=== PATIENT | female | born 1980 | race Caucasian/White ===

== ENCOUNTER → 2018-11-19 | Outpatient (CLI) | payer OTHER | END | disposition home or self-care (01) | LOC: LABWHC1 09:32 | PROVIDERS: ATTEND Nurse Practitioner Family | DX: Z00.00 Encounter for general adult medical examination without abnormal findings (principal); E66.9 Obesity, unspecified; Z68.33 Body mass index [BMI] 33.0-33.9, adult; E03.9 Hypothyroidism, unspecified | CPT/HCPCS: 36415; 93005 ==

== ENCOUNTER → 2022-08-25 | Outpatient (CLI) | payer OTHER ==
--- NOTE | 2022-08-28 08:36 | MM ---
Reason for Exam: Screening (asymptomatic). Baseline mammogram. Patient History: Menarche at age 16. First Full-Term at age 30. Patient has history of breast feeding. Last menstrual period: 08/08/2022 Risk Values: Nisa 5 year model risk: 0.6%. NCI Lifetime model risk: 10.2%. Prior Study Comparison: Patient's first Mammogram. Tissue Density: The breast tissue is heterogeneously dense. This may lower the sensitivity of mammography. Findings: Analyzed By CAD. There is no suspicious group of microcalcifications or new suspicious mass in either breast. There is no suspicious group of microcalcifications or suspicious mass in either breast. Overall Assessment: Negative, BI-RAD 1 Management: Screening Mammogram of both breasts in 1 year. A clinical breast exam by your physician is recommended on an annual basis and results should be correlated with mammographic findings. Electronically signed and approved by: Schuyler Perry M.D.
== END | disposition home or self-care (01) ==
LOC: RADMAMWWP 07:21
PROVIDERS: ATTEND Obstetrics & Gynecology
DX: Z12.31 Encounter for screening mammogram for malignant neoplasm of breast (principal)
CPT/HCPCS: 77063; 77067

== ENCOUNTER 2023-10-05 18:26 | Emergency (ER) | payer OTHER ==
--- NOTE | 2023-10-05 18:42 | ED ---
Chest Pain HPI - General Source: patient, RN notes reviewed <Stephanie Tavares - Last Filed: 10/05/23 18:40> <Simeon Arteaga - Last Filed: 10/05/23 23:04> - General Stated Complaint: Chest pain Time Seen by Provider: 10/05/23 18:40 - History of Present Illness Initial Comments: Patient is a 43-year-old female presented ER with chief complaint chest pain. Patient also is endorsing numbness and tingling in her upper extremities. Describes chest pain as tightness 7 out of 10. (Stephanie Tavares) 43-year-old female presents for an episode of lower chest and upper abdominal pain. Patient has no prior history of CAD. She states that this occurred while at work. She has previous history of cholecystectomy. No vomiting. She did have hyperventilation and periorbital numbness during this episode which has since resolved. (Simeon Arteaga) - Related Data Allergies Allergy/AdvReac Type Severity Reaction Status Date / Time Penicillins Allergy Rash/Hives Verified 10/05/23 18:42 Sulfa (Sulfonamide Allergy Rash/Hives Verified 10/05/23 18:43 Antibiotics) Review of Systems ROS Other: All systems not noted in ROS Statement are negative. <Stephanie Tavares - Last Filed: 10/05/23 18:40> ROS Other: All systems not noted in ROS Statement are negative. <Simeon Arteaga - Last Filed: 10/05/23 23:04> ROS Statement: Those systems with pertinent positive or pertinent negative responses have been documented in the HPI. General Exam <Stephanie Tavares - Last Filed: 10/05/23 18:40> General appearance: alert, in no apparent distress Head exam: Present: atraumatic, normocephalic Eye exam: Present: normal appearance, PERRL ENT exam: Present: normal exam Neck exam: Present: normal inspection. Absent: tenderness, meningismus Respiratory exam: Present: normal lung sounds bilaterally. Absent: respiratory distress, wheezes Cardiovascular Exam: Present: regular rate, normal rhythm GI/Abdominal exam: Present: soft. Absent: distended, tenderness Extremities exam: Present: normal inspection, normal capillary refill Neurological exam: Present: alert, oriented X3, CN II-XII intact. Absent: motor sensory deficit Psychiatric exam: Present: normal affect, normal mood Skin exam: Present: warm, dry, intact. Absent: cyanosis, diaphoretic <Simeon Arteaga - Last Filed: 10/05/23 23:04> - General Exam Comments Initial Comments: Visual Physical Exam Vital signs reviewed General: Anxious, nontoxic, no acute distress. Head: Normocephalic, atraumatic Eyes: PERRLA, EOMI ENT: Airway patent Chest: Nonlabored breathing Skin: No visual rash, normal skin tone Neuro: Alert and oriented 3 Musculoskeletal: No gross abnormalities (Stephanie Tavares) Course <Simeon Arteaga - Last Filed: 10/05/23 23:04> Vital Signs 10/05/23 18:38 Temperature 97.6 F Pulse Rate 78 Respiratory 20 Rate Blood Pressure 132/85 O2 Sat by Pulse 99 Oximetry - Reevaluation(s) Reevaluation #1: 10/05/23 23:01 Patient reevaluated twice, no chest pain, no vomiting, no fever, no abdominal pain. (Simeon Arteaga) Chest Pain MDM <Stephanie Tavares - Last Filed: 10/05/23 18:40> <Simeon Arteaga - Last Filed: 10/05/23 23:04> - MDM I performed the quick note portion of the exam. Electronically signed by Stephanie Tavares PA-C (Stephanie Tavares) Was pt. sent in by a medical professional or institution (ANABELA Fleming, GROUP WORKER, urgent care, hospital, or detention...) When possible be specific @ -No Did you speak to anyone other than the patient for history (EMS, parent, family, police, friend...)? What history was obtained from this source @ -No Did you review nursing and triage notes (agree or disagree)? Why? @ -I reviewed and agree with nursing and triage notes Were old charts reviewed (outside hosp., previous admission, EMS record, old EKG, old radiological studies, urgent care reports/EKG's, detention records)? Report findings @ -No old charts were reviewed Differential Diagnosis (chest pain, altered mental status, abdominal pain women, abdominal pain men, vaginal bleeding, weakness, fever, dyspnea, syncope, headache, dizziness, GI bleed, back pain, seizure, CVA, palpatations, mental health, musculoskeletal)? @Differential Chest Pain: Stable Angina, Unstable Angina, STEMI, NSTEMI Aortic Dissection, Pneumothorax, Musculoskeletal, Esophageal Spasm GERD, Cholecystitis, Pancreatitis, Zoster, this is not meant to be an all-inclusive list. EKG interpreted by me (3pts min.). @Sinus rhythm, incomplete right bundle branch block, ventricular rate of 69, AL interval 146, QRS duration 109, QTc [address] segment elevation X-rays interpreted by me (1pt min.). @ -Chest x-ray negative for acute cardiopulmonary findings. CT interpreted by me (1pt min.). @ -None done U/S interpreted by me (1pt. min.). @ -None done What testing was considered but not performed or refused? (CT, X-rays, U/S, labs)? Why? @ -None What meds were considered but not given or refused? Why? @ -None Did you discuss the management of the patient with other professionals (professionals i.e. , PA, GROUP WORKER, lab, RT, psych nurse, social sciences instructor, naval inspector, teacher, community reinvestment act officer, case fitter)? Give summary @ -No Was smoking cessation discussed for >3mins.? @ -No Was critical care preformed (if so, how long)? @ -No Were there social determinants of health that impacted care today? How? (Homelessness, low income, unemployed, alcoholism, drug addiction, transportation, low edu. Level, literacy, decrease access to med. care, prison, rehab)? @ -No Was there de-escalation of care discussed even if they declined (Discuss DNR or withdrawal of care, Hospice)? DNR status @ -No What co-morbidities impacted this encounter? (DM, HTN, Smoking, COPD, CAD, Cancer, CVA, ARF, Chemo, Hep., AIDS, mental health diagnosis, sleep apnea, morbid obesity)? @ -[History of cholecystectomy Was patient admitted / discharged? Hospital course, mention meds given and route, prescriptions, significant lab abnormalities, going to OR and other pertinent info. @ -43-year-old female, well-appearing stable vitals. She is in sinus rhythm. Patient had developed lower chest and upper abdominal pain which was across bilateral lower chest. Patient pain had resolved at the time my evaluation. She has history of previous cholecystectomy. Chest x-ray is clear without acute cardiopulmonary findings. She has a normal CBC, CMP shows a transaminitis, patient does admit to alcohol consumption yesterday. Bilirubin is normal. Troponin is negative. I did repeat troponin which was again negative. Patient had no further symptoms while in the emergency department. I did discuss the possibility liver imaging and the common bile duct however given the patient is feeling better and there are currently no rooms in the emergency department we did plan on discharge with strict return parameters and close outpatient follow- up. Undiagnosed new problem with uncertain prognosis? @ -No Drug Therapy requiring intensive monitoring for toxicity (Heparin, Nitro, Insulin, Cardizem)? @ -No Were any procedures done? @ -No Diagnosis/symptom? @ -[Lower chest and upper abdominal pain, resolved Acute, or Chronic, or Acute on Chronic? @ -Acute Uncomplicated (without systemic symptoms) or Complicated (systemic symptoms)? @ -[default Side effects of treatment? @ -No Exacerbation, Progression, or Severe Exacerbation? @ -No Poses a threat to life or bodily function? How? (Chest pain, [place], [place], pneumonia, PE, COPD, DKA, ARF, appy, cholecystitis, CVA, Diverticulitis, Homicidal, Suicidal, threat to staff... and all critical care pts) @ -[low Risk at this time (Simeon Arteaga) Disposition <Stephanie Tavares - Last Filed: 10/05/23 18:40> Is patient prescribed a controlled substance at d/c from ED?: No Time of Disposition: 23:00 <Simeon Arteaga - Last Filed: 10/05/23 23:04> Clinical Impression: Abdominal pain, Chest pain Disposition: HOME SELF-CARE Condition: Fair Instructions (If sedation given, give patient instructions): Abdominal Pain (ED), Chest Pain (ED) Referrals: Blayne Abad Jr, [Primary Care Provider] - 1-2 days
[2023-10-05 18:46] VITALS: BP 132/85; PULSE 78; RESP 20; TEMP 97.6
[2023-10-05 19:20] LABS: MCH 30.9 pg (25.0-35.0); MCHC 34.2 g/dL (31.0-37.0); MCV 90.2 fL (80.0-100.0); Mean Platelet Volume 7.7; Platelet Count 257 k/uL (150-450); RBC 4.54 m/uL (3.80-5.40); RDW 11.7 % (11.5-15.5); WBC 10.2 k/uL (3.8-10.6)
--- NOTE | 2023-10-05 19:31 | XR ---
EXAMINATION TYPE: XR chest 2V DATE OF EXAM: 10/05/2023 7:14 PM CLINICAL INDICATION:Female, 43 years old with history of chest pain; [facility] COMPARISON: None TECHNIQUE: XR chest 2V Frontal and lateral views of the chest. FINDINGS: Lungs/Pleura: Azygous fissure in the right upper lung. There is no evidence of pleural effusion, foca l consolidation, or pneumothorax. Pulmonary vascularity: Unremarkable. Heart/mediastinum: Cardiomediastinal silhouette is unremarkable. Musculoskeletal: No acute osseous pathology. IMPRESSION: No acute cardiopulmonary disease/process.
[2023-10-05 19:34] LABS: ALT 64 U/L (4-34); AST 163 U/L (14-36); African American GFR (CKD) >90 (>60 ml/min/1.73 sqM); Albumin 4.7 g/dL (3.5-5.0); Alkaline Phosphatase 97 U/L (38-126); Anion Gap 9 mmol/L; Blood Urea Nitrogen 13 mg/dL (7-17); Calcium 9.2 mg/dL (8.4-10.2); Carbon Dioxide 27 mmol/L (22-30); Chloride 101 mmol/L (98-107); Glucose 107 mg/dL (74-99); Magnesium 1.9 mg/dL (1.6-2.3); Non-African American GFR(CKD) >90 (>60 ml/min/1.73 sqM); Potassium 3.8 mmol/L (3.5-5.1); Sodium 137 mmol/L (137-145); Total Bilirubin 0.8 mg/dL (0.2-1.3); Total Protein 7.4 g/dL (6.3-8.2)
[2023-10-05 19:39] LABS: INR 0.9 (<1.2); Partial Thromboplastin Time 25.5 sec (22.0-30.0); Prothrombin Time 10.5 sec (10.0-12.5)
[2023-10-05 22:19] LABS: ALT 144 U/L (4-34); AST 275 U/L (14-36); African American GFR (CKD) >90 (>60 ml/min/1.73 sqM); Albumin 4.5 g/dL (3.5-5.0); Alkaline Phosphatase 115 U/L (38-126); Anion Gap 5 mmol/L; Blood Urea Nitrogen 11 mg/dL (7-17); Calcium 9.2 mg/dL (8.4-10.2); Carbon Dioxide 27 mmol/L (22-30); Chloride 105 mmol/L (98-107); Glucose 99 mg/dL (74-99); Lipase 160 U/L (23-300); Non-African American GFR(CKD) >90 (>60 ml/min/1.73 sqM); Potassium 3.8 mmol/L (3.5-5.1); Sodium 137 mmol/L (137-145); Total Bilirubin 0.9 mg/dL (0.2-1.3); Total Protein 7.1 g/dL (6.3-8.2)
== END 2023-10-05 23:19 | disposition home or self-care (01) ==
LOC: EC 18:26
DX: I45.10 Unspecified right bundle-branch block (principal); R10.10 Upper abdominal pain, unspecified; Z88.0 Allergy status to penicillin; Z88.2 Allergy status to sulfonamides
CPT/HCPCS: 36415; 71046; 80053; 83690; 83735; 84484; 85027; 85610; 85730; 93005; 99285

== ENCOUNTER → 2023-10-25 | Outpatient (CLI) | payer OTHER ==
--- NOTE | 2023-10-26 10:34 | MM ---
Reason for Exam: Screening (asymptomatic). Last mammogram was performed 1 year(s) and 2 month(s) ago. Patient History: Menarche at age 16. First Full-Term at age 30. Patient has history of breast feeding. Last menstrual period: 10/04/2023 Risk Values: Nisa 5 year model risk: 0.6%. NCI Lifetime model risk: 10.1%. Prior Study Comparison: 08/25/2022 Bilateral MG 3D screening mammo w/cad, [facility]. Tissue Density: The breasts are heterogeneously dense, which may obscure small masses. Findings: Analyzed By CAD. Benign-appearing calcifications. There is no suspicious group of microcalcifications or new suspicious mass in either breast. Asymmetric density upper outer margin left breast. Overall Assessment: Incomplete: need additional imaging evaluation, BI-RAD 0 Management: Diagnostic Mammogram of the left breast. . Patient should continue monthly self-breast exams. A clinical breast exam by your physician is recommended on an annual basis. This exam should not preclude additional follow-up of suspicious palpable abnormalities. Note on Nisa scores and lifetime risk: 1. A Nisa score greater than 3% is considered moderate risk. If this is the case, consider specialist referral to assess eligibility for a risk reducing agent. 2. If overall lifetime risk for the development of breast cancer is 20% or higher, the patient may qualify for future screening with alternating mammogram and breast MRI. Electronically signed and approved by: Last Acosta M.D. Radiologis
== END | disposition home or self-care (01) ==
LOC: RADMAMWWP 11:11
PROVIDERS: ATTEND Obstetrics & Gynecology
DX: Z12.31 Encounter for screening mammogram for malignant neoplasm of breast (principal)
CPT/HCPCS: 77063; 77067

== ENCOUNTER → 2023-11-06 | Outpatient (CLI) | payer OTHER ==
--- NOTE | 2023-11-06 10:31 | USB ---
Reason for Exam: Additional evaluation requested from abnormal screening. Patient History: Menarche at age 16. First Full-Term at age 30. Patient has history of breast feeding. Risk Values: Nisa 5 year model risk: 0.6%. NCI Lifetime model risk: 10.1%. Technique: Method: Targeted. Prior Study Comparison: 08/25/2022 Bilateral MG 3D screening mammo w/cad, [facility]. 10/25/2023 Bilateral MG 3D screening mammo w/cad, [facility]. Findings: The upper outer quadrant of the left breast, the axilla of the left breast and the retroareolar of the left breast were scanned. No solid or cystic masses are identified.. Overall Assessment: Probably benign, BI-RAD 3 Management: Diagnostic Mammogram of the left breast in 6 months. A clinical breast exam by your physician is recommended on an annual basis and results should be correlated with mammographic findings. This exam should not preclude additional follow-up of suspicious palpable abnormalities. Results were given to the patient verbally at the time of exam. Electronically signed and approved by: Edgar Reddy M.D. Radiologis
--- NOTE | 2023-11-06 10:36 | MM ---
Reason for Exam: Additional evaluation requested from abnormal screening. Last screening mammogram was performed less than 1 month ago. Patient History: Menarche at age 16. First Full-Term at age 30. Patient has history of breast feeding. Risk Values: Nisa 5 year model risk: 0.6%. NCI Lifetime model risk: 10.1%. Prior Study Comparison: 08/25/2022 Bilateral MG 3D screening mammo w/cad, [facility]. 10/25/2023 Bilateral MG 3D screening mammo w/cad, [facility]. Tissue Density: Left: The breasts are heterogeneously dense, which may obscure small masses. Findings: Analyzed By CAD. Nodular density does not persist on all spot images obtained over ultrasound is recommended upper outer quadrant left breast. Overall Assessment: Incomplete: need additional imaging evaluation, BI-RAD 0 Management: Diagnostic Breast Ultrasound of the left breast. . Results were given to the patient verbally at the time of exam. Patient should continue monthly self-breast exams. A clinical breast exam by your physician is recommended on an annual basis. This exam should not preclude additional follow-up of suspicious palpable abnormalities. Note on Nisa scores and lifetime risk: 1. A Nisa score greater than 3% is considered moderate risk. If this is the case, consider specialist referral to assess eligibility for a risk reducing agent. 2. If overall lifetime risk for the development of breast cancer is 20% or higher, the patient may qualify for future screening with alternating mammogram and breast MRI. Electronically signed and approved by: Edgar Reddy M.D. Radiologis
== END | disposition home or self-care (01) ==
LOC: RADMAMWWP 09:34
PROVIDERS: ATTEND Obstetrics & Gynecology
DX: R92.332 Mammographic heterogeneous density, left breast (principal)
CPT/HCPCS: 77061; 77065

== ENCOUNTER → 2024-08-27 | Outpatient (CLI) | payer OTHER ==
--- NOTE | 2024-08-27 08:51 | MM ---
Reason for Exam: Follow-up at short interval from prior study. Last screening mammogram was performed 10 month(s) ago. Patient History: Menarche at age 16. First Full-Term at age 30. Patient has history of breast feeding. Risk Values: Nisa 5 year model risk: 0.7%. NCI Lifetime model risk: 10.0%. Prior Study Comparison: 08/25/2022 Bilateral MG 3D screening mammo w/cad, [facility]. 10/25/2023 Bilateral MG 3D screening mammo w/cad, [facility]. 11/06/2023 Left MG 3D work up w/cad LT, [facility]. Tissue Density: Left: The breasts are heterogeneously dense, which may obscure small masses. Findings: Analyzed By CAD. The previously questioned asymmetric density just above the retroareolar plane on the MLO view has not persisted. Asymmetric density superior MLO view middle depth disperses on additional views compatible with superimposition shadow. No significant change. Overall Assessment: Benign, BI-RAD 2 Management: Screening Mammogram of both breasts in 2 months. Results were given to the patient verbally at the time of exam. Patient should continue monthly self-breast exams. A clinical breast exam by your physician is recommended on an annual basis. This exam should not preclude additional follow-up of suspicious palpable abnormalities. Note on Nisa scores and lifetime risk: 1. A Nisa score greater than 3% is considered moderate risk. If this is the case, consider specialist referral to assess eligibility for a risk reducing agent. 2. If overall lifetime risk for the development of breast cancer is 20% or higher, the patient may qualify for future screening with alternating mammogram and breast MRI. [facility], , 08/27/2024 8:49 AM. Electronically signed and approved by: Ashley Kruger M.D. Radiologist
== END | disposition home or self-care (01) ==
LOC: RADMAMWWP 08:00
PROVIDERS: ATTEND Obstetrics & Gynecology
DX: R92.8 Other abnormal and inconclusive findings on diagnostic imaging of breast (principal); R92.332 Mammographic heterogeneous density, left breast; R92.2 Inconclusive mammogram
CPT/HCPCS: 77061; 77065